=== PATIENT | male | born 1985 | race Caucasian/White ===

== ENCOUNTER 2019-04-21 00:05 | Emergency (ER) | payer BC ==
[~2019-04-21] VITALS: Ht 175.3 cm; Wt 80.0 kg
[2019-04-21] MEDS ORDERED: MORPHINE SULFATE 4 MG/ML CPJ (NOT FOR IM USE) IV STA (01:09)
[2019-04-21] MEDS ORDERED: ONDANSETRON HCL 4MG/2ML INJ IV STA (01:09)
[2019-04-21] MEDS ORDERED: SODIUM CHLORIDE 0.9% 1,000 ML IV ONE (01:09)
[2019-04-21 02:32] VITALS: BP 128/86
[2019-04-21] MEDS ORDERED: IBUPROFEN 200MG TABLET PO ONE (03:15)
[2019-04-21] MEDS ORDERED: KETOROLAC 15MG/ML VIAL IV ONE (03:45)
== END 2019-04-21 04:18 | disposition home or self-care (01) ==
LOC: ER 00:05
DX: S02.2XXA Fracture of nasal bones, initial encounter for closed fracture (principal); W01.0XXA Fall on same level from slipping, tripping and stumbling without subsequent striking against object, initial encounter; Y93.41 Activity, dancing; Y92.89 Other specified places as the place of occurrence of the external cause
CPT/HCPCS: 70450; 70486; 96374; 96375; 99284; J1885; J2270; J2405; J7030; Z7610